=== PATIENT | male | born 1950 | race Caucasian/White ===

== ENCOUNTER 2020-04-14 08:31 | Outpatient (CLI) | payer MEDICARE, SELFPAY ==
[2020-04-14 08:50] LABS: Basophils Absolute Auto 0.03 K/mm3 (0.00-0.10); Basophils Percent Auto 0.5 % (0.0-1.0); Eosinophils Absolute Auto 0.07 K/mm3 (0.02-0.50); Eosinophils Percent Auto 1.2 % (1.0-6.0); Hematocrit 48.3 % (37.0-46.0); Hemoglobin 15.9 g/dL (12.4-15.3); Immature Granulocyte Absolute 0.02 K/mm3 (0.00-0.00); Immature Granulocyte Percent A 0.3 % (0.0-0.0); Lymphocytes Absolute Auto 1.25 K/mm3 (1.10-4.50); Lymphocytes Percent Auto 21.3 % (18.0-42.0); Mean Corpuscular HGB Conc 32.9 g/dL (32.0-36.0); Mean Corpuscular Hemoglobin 30.8 pg (27.0-31.0); Mean Corpuscular Volume 93.6 fL (78.0-102.0); Mean Platelet Volume 11.7 fl (8.7-11.0); Monocytes Absolute Auto 0.45 K/mm3 (0.10-0.90); Monocytes Percent Auto 7.7 % (2.0-11.0); Neutrophils Absolute Auto 4.1 K/mm3 (1.7-7.2); Platelet Count Result 152 K/mm3 (150-420); Red Blood Count 5.16 M/mm3 (4.70-6.10); Red Cell Distribution Width 12.8 % (11.6-14.4); White Blood Count 5.9 K/mm3 (4.8-10.8)
[2020-04-14 08:52] LABS: Add Urine Microscopic? NO; Appearance Urine Clear (Clear); Bilirubin Urine Negative (Negative); Blood Urine Negative (Negative); Color Urine Yellow (Yellow); Glucose Urine UA Negative (Negative); Ketones Urine Negative (Negative); Leukocyte Esterase Ur Negative (Negative); Nitrate Urine Negative (Negative); Protein Urine Negative (Negative); Specific Grav Ur 1.015 (1.010-1.020); Urobilinogen Urine 0.2 mg/dL (0.2-1.0)
[2020-04-14 09:39] LABS: Alanine Aminotransferase 29 U/L (16-63); Albumin Level 3.9 g/dL (3.4-5.0); Alkaline Phosphatase 63 U/L (46-116); Aspartate Amino Transferase 23 U/L (15-37); Bilirubin,Total 0.6 mg/dL (0.00-1.00); Blood Urea Nitrogen 16 mg/dL (7-18); Calcium 9.5 mg/dL (8.5-10.1); Carbon Dioxide 31 mmol/L (21-32); Chloride 108 mmol/L (98-108); Cholesterol 131 mg/dL (0-200); Estimated Glomerular Filt Rate > 60; Glucose 92 mg/dL (70-99); HDL Direct 38 mg/dL (40-60); LDL Cholesterol Calculated 75 mg/dL (<130); Osmolality Calculated 301 mOsm/kg (285-295); Prostate Specific Antigen 0.5 ng/mL (< OR = 4.0); Sodium 145 mmol/L (136-145); Total Protein 6.6 g/dL (6.4-8.2); Triglycerides 90 mg/dL (0-150)
== END 2020-04-14 08:32 | disposition home or self-care (01) ==
PROVIDERS: PCP Internal Medicine; Visit Provider Internal Medicine Cardiovascular Disease
DX: E78.5 Hyperlipidemia, unspecified (principal); Z79.899 Other long term (current) drug therapy; Z13.220 Encounter for screening for lipoid disorders; I10 Essential (primary) hypertension; Z12.5 Encounter for screening for malignant neoplasm of prostate
CPT/HCPCS: 36415; 80053; 80061; 81003; 84153; 85025; G0103

== ENCOUNTER 2021-06-10 08:30 | Outpatient (CLI) | payer MEDICARE, SELFPAY ==
[2021-06-10 09:33] LABS: Basophils Absolute Auto 0.03 K/mm3 (0.00-0.10); Basophils Percent Auto 0.4 % (0.0-1.0); Eosinophils Percent Auto 1.5 % (1.0-6.0); Hematocrit 48.9 % (37.0-46.0); Hemoglobin 16.1 g/dL (12.4-15.3); Immature Granulocyte Absolute 0.02 K/mm3 (0.00-0.00); Immature Granulocyte Percent A 0.3 % (0.0-0.0); Lymphocytes Absolute Auto 1.51 K/mm3 (1.10-4.50); Lymphocytes Percent Auto 22.4 % (18.0-42.0); Mean Corpuscular HGB Conc 32.9 g/dL (32.0-36.0); Mean Corpuscular Hemoglobin 30.8 pg (27.0-31.0); Mean Corpuscular Volume 93.5 fL (78.0-102.0); Mean Platelet Volume 11.5 fl (8.7-11.0); Monocytes Absolute Auto 0.54 K/mm3 (0.10-0.90); Neutrophils Absolute Auto 4.6 K/mm3 (1.7-7.2); Neutrophils Percent Auto 67.4 % (50.0-70.0); Platelet Count Result 193 K/mm3 (150-420); Red Blood Count 5.23 M/mm3 (4.70-6.10); Red Cell Distribution Width 13.1 % (11.6-14.4); White Blood Count 6.8 K/mm3 (4.8-10.8)
[2021-06-10 10:15] LABS: Alanine Aminotransferase 44 U/L (16-63); Albumin Level 3.9 g/dL (3.4-5.0); Alkaline Phosphatase 70 U/L (46-116); Anion Gap 10 mmol/L (8-16); Aspartate Amino Transferase 27 U/L (15-37); Bilirubin,Total 0.7 mg/dL (0.00-1.00); Blood Urea Nitrogen 17 mg/dL (7-18); Calcium 9.5 mg/dL (8.5-10.1); Carbon Dioxide 30 mmol/L (21-32); Chloride 107 mmol/L (98-108); Cholesterol 148 mg/dL (0-200); Estimated Glomerular Filt Rate > 60; Ferritin 211 ng/mL (26-388); Glucose 88 mg/dL (70-99); HDL Direct 39 mg/dL (40-60); Iron 84 ug/dL (65-175); LDL Cholesterol Calculated 83 mg/dL (<130); Osmolality Calculated 304 mOsm/kg (285-295); Percent Iron Saturation 28 % (12-57); Potassium 5.1 mmol/L (3.5-5.1); Prostate Specific Antigen 0.7 ng/mL (< OR = 4.0); Sodium 147 mmol/L (136-145); Total Protein 6.8 g/dL (6.4-8.2); Triglycerides 132 mg/dL (0-150)
== END 2021-06-10 08:31 | disposition home or self-care (01) ==
PROVIDERS: PCP Internal Medicine; Visit Provider Internal Medicine Cardiovascular Disease
DX: I49.5 Sick sinus syndrome (principal); E78.5 Hyperlipidemia, unspecified; D50.9 Iron deficiency anemia, unspecified; I10 Essential (primary) hypertension; Z95.1 Presence of aortocoronary bypass graft; Z12.5 Encounter for screening for malignant neoplasm of prostate
CPT/HCPCS: 36415; 80053; 80061; 82728; 83540; 83550; 84153; 85025; G0103

== ENCOUNTER 2021-08-20 09:24 | Outpatient (CLI) | payer MEDICARE, SELFPAY ==
[2021-08-20 10:25] LABS: Cholesterol 138 mg/dL (0-200); Free T3 2.28 pg/mL (2.18-3.98); Free T4 Free Thyroxine 0.69 ng/dL (0.76-1.46); HDL Direct 36 mg/dL (40-60); LDL Cholesterol Calculated 81 mg/dL (<130); Thyroid Stimulating Hormone 4.78 uIU/mL (0.36-3.74); Triglycerides 106 mg/dL (0-150)
== END 2021-08-20 09:25 | disposition home or self-care (01) ==
LOC: CHSLAB 09:26
PROVIDERS: PCP Internal Medicine; Visit Provider Internal Medicine
DX: R53.83 Other fatigue (principal); E11.69 Type 2 diabetes mellitus with other specified complication; E78.5 Hyperlipidemia, unspecified
CPT/HCPCS: 36415; 80061; 84439; 84443; 84481

== ENCOUNTER 2021-08-25 14:52 | Outpatient (CLI) | payer MEDICARE, SELFPAY ==
--- NOTE | ~2021-08-25 | US_ITS ---
EXAMINATION: US thyroid DATE: 08/25/2021 15:24 INDICATION: Hyperthyroidism. TECHNIQUE: Multiple ultrasound images of the thyroid were obtained. COMPARISON: None. FINDINGS: The right thyroid lobe measures 3.7 x 1.6 x 1.3 cm. The left thyroid lobe measures 3.1 x 1.5 x 1.3 c m. In the left thyroid lobe, there is an 8 mm solid, hypoechoic, jotnq-tsph-mcbt nodule with smooth margin without echogenic foci (TI-RADS TR4). IMPRESSION: 1. Small thyroid nodule, likely not clinically significant. No follow-up is needed. Reviewed, dictated and finalized at location A. IMPRESSION: 1. Small thyroid nodule, likely not clinically significant. No follow-up is nee ded.
[2021-08-28 05:46] LABS: Thyroglobulin 14.9 ng/mL (2.8-40.9); Thyroglobulin Antibodies <1 IU/mL (<=1); Thyroid Peroxidase Antibodies <1 IU/mL (<9)
== END 2021-08-25 14:53 | disposition home or self-care (01) ==
PROVIDERS: PCP Internal Medicine; Visit Provider Internal Medicine
DX: E03.9 Hypothyroidism, unspecified (principal)
CPT/HCPCS: 36415; 76536; 84432; 86376; 86800

== ENCOUNTER 2022-03-04 13:40 | Outpatient (CLI) | payer MEDICARE, SELFPAY ==
[2022-03-04 14:17] LABS: Basophils Absolute Auto 0.03 K/mm3 (0.00-0.10); Basophils Percent Auto 0.3 % (0.0-1.0); Eosinophils Absolute Auto 0.06 K/mm3 (0.02-0.50); Eosinophils Percent Auto 0.7 % (1.0-6.0); Hematocrit 47.4 % (37.0-46.0); Hemoglobin 15.7 g/dL (12.4-15.3); Immature Granulocyte Absolute 0.02 K/mm3 (0.00-0.00); Immature Granulocyte Percent A 0.2 % (0.0-0.0); Lymphocytes Absolute Auto 1.13 K/mm3 (1.10-4.50); Lymphocytes Percent Auto 12.4 % (18.0-42.0); Mean Corpuscular HGB Conc 33.1 g/dL (32.0-36.0); Mean Corpuscular Hemoglobin 31.1 pg (27.0-31.0); Mean Corpuscular Volume 93.9 fL (78.0-102.0); Mean Platelet Volume 11.5 fl (8.7-11.0); Monocytes Absolute Auto 0.63 K/mm3 (0.10-0.90); Monocytes Percent Auto 6.9 % (2.0-11.0); Neutrophils Absolute Auto 7.3 K/mm3 (1.7-7.2); Neutrophils Percent Auto 79.5 % (50.0-70.0); Platelet Count Result 197 K/mm3 (150-420); Red Blood Count 5.05 M/mm3 (4.70-6.10); Red Cell Distribution Width 13.1 % (11.6-14.4); White Blood Count 9.1 K/mm3 (4.8-10.8)
[2022-03-04 14:18] LABS: Add Urine Microscopic? YES; Appearance Urine Clear (Clear); Bilirubin Urine Negative (Negative); Blood Urine Negative (Negative); Color Urine Yellow (Yellow); Glucose Urine UA Negative (Negative); Ketones Urine Negative (Negative); Leukocyte Esterase Ur Negative (Negative); Nitrate Urine Negative (Negative); Protein Urine 2+ (Negative); Specific Grav Ur 1.025 (1.010-1.020); Urobilinogen Urine 0.2 mg/dL (0.2-1.0)
[2022-03-04 14:22] LABS: Bacteria Urine Trace /hpf; Mucus Urine Few /lpf; RBC Urine None seen /hpf (0-2); Squamous Epithelial Cell Urine Rare /hpf (Few); WBC Urine None seen /hpf (0-3)
[2022-03-04 14:47] LABS: Alanine Aminotransferase 32 U/L (16-63); Albumin Level 3.9 g/dL (3.4-5.0); Alkaline Phosphatase 73 U/L (46-116); Anion Gap 12 mmol/L (8-16); Aspartate Amino Transferase 20 U/L (15-37); Bilirubin,Total 0.4 mg/dL (0.00-1.00); Blood Urea Nitrogen 20 mg/dL (7-18); Calcium 9.3 mg/dL (8.5-10.1); Carbon Dioxide 25 mmol/L (21-32); Chloride 106 mmol/L (98-108); Cholesterol 128 mg/dL (0-200); Estimated Glomerular Filt Rate > 60; Free T3 2.44 pg/mL (2.18-3.98); Free T4 Free Thyroxine 0.75 ng/dL (0.76-1.46); Glucose 93 mg/dL (70-99); HDL Direct 41 mg/dL (40-60); LDL Cholesterol Calculated 67 mg/dL (<130); Osmolality Calculated 298 mOsm/kg (285-295); Potassium 4.2 mmol/L (3.5-5.1); Sodium 143 mmol/L (136-145); Thyroid Stimulating Hormone 3.51 uIU/mL (0.36-3.74); Total Protein 6.9 g/dL (6.4-8.2); Triglycerides 100 mg/dL (0-150)
== END 2022-03-04 13:41 | disposition home or self-care (01) ==
LOC: CHSLAB 13:42
PROVIDERS: PCP Internal Medicine; Visit Provider Internal Medicine
DX: E78.5 Hyperlipidemia, unspecified (principal); I10 Essential (primary) hypertension; E03.9 Hypothyroidism, unspecified
CPT/HCPCS: 36415; 80053; 80061; 81001; 84439; 84443; 84481; 85025

== ENCOUNTER 2022-06-17 08:33 | Outpatient (CLI) | payer MEDICARE, SELFPAY ==
[2022-06-17 09:02] LABS: Cholesterol 115 mg/dL (0-200); HDL Direct 37 mg/dL (40-60); LDL Cholesterol Calculated 58 mg/dL (<130); Triglycerides 101 mg/dL (0-150)
== END 2022-06-17 08:34 | disposition home or self-care (01) ==
LOC: CHSLAB 08:37
PROVIDERS: PCP Internal Medicine; Visit Provider Internal Medicine Cardiovascular Disease
DX: E78.5 Hyperlipidemia, unspecified (principal); E11.69 Type 2 diabetes mellitus with other specified complication
CPT/HCPCS: 36415; 80061

== ENCOUNTER 2022-06-21 00:06 | Day surgery (SDC) | payer MEDICARE, OTHER, SELFPAY ==
[2022-06-02 14:08] VITALS: BMI 35.8
[2022-06-21 06:42] VITALS: BP 135/67; PULSE 51; RESP 18; TEMP 36; O2SAT 96; BMI 36.5
[2022-06-21] MEDS: LACTATED RINGERS 1,000 ML 150 ML IV CONT (07:02)
--- NOTE | 2022-06-21 07:44 | P.PNAN_ITS ---
Anes - Initial Pre Proc Eval Procedure: Operation Date: 06/21/22 08:00 Proposed Procedures p Screening Colonoscopy - Vicente Dubon MD Date/Time: 06/21/22 07:44 Surgeon: Vicente Dubon MD Pre Op Diagnosis: neoplasm screening Patient Data Age: 71 Gender: M Height: 1.73 m Weight: 109 kg Last Vital Signs Temp 96.8 F L 06/21/22 06:42 Pulse 51 L 06/21/22 06:42 Resp 18 06/21/22 06:42 BP 135/67 06/21/22 06:42 Pulse Ox 96 06/21/22 06:42 O2 Del Method Room Air 06/21/22 06:42 Allergies Allergy/AdvReac Type Severity Reaction Status Date / Time No Known Allergies Allergy Verified 06/21/22 06:51 Home Medications Medication Instructions Recorded Confirmed Type amlodipine 5 mg tablet 1 tablet PO DAILY 06/02/22 06/21/22 History aspirin 81 mg tablet 81 mg PO DAILY 06/02/22 06/21/22 History atorvastatin 80 mg tablet 1 tablet PO DAILY 06/02/22 06/21/22 History fexofenadine 180 mg tablet 180 mg PO DAILY 06/02/22 06/21/22 History losartan 100 mg tablet 1 tablet PO DAILY 06/02/22 06/21/22 History omega-3 fatty acids 1,000 mg 2,000 mg PO DAILY 06/02/22 06/21/22 History capsule spironolactone 25 mg tablet 1 tablet PO EVERY OTHER DAY 06/02/22 06/21/22 Histo ry Patient hx anesthesia problems: none Family hx anesthesia problems: none Results Review: All pre-operative results and documents have been reviewed as part of the pre- operative evaluation. [facility] Family History Family History (Updated 11/16/17 @ 00:00 by CONVUSER A) Father Family history of coronary artery disease Other Cerebrovascular accident Social History Social History Smoking packs per day: 2 Smoking cigarettes per day: 40.0 Smoking status: Current every day smoker Tobacco type: cigarettes Alcohol intake: current Alcohol use details: 1 PER MONTH Substance use: never Substance use type: does not use Living arrangements: with family Spiritual care concerns: No Anes - Eval Final PreProcedure Day of Procedure 06/21/22 07:44 Patient weight: obese Heart: regular rate and rhythm Lungs: clear to auscultation Airway: Mallampati scale class II Neurological: alert and oriented Last oral intake: >/= 8 hours ASA classification: III Emergent: no Anesthetic plan: proceed Anesthesia type and monitoring: general GIVS and standard monitoring Results Review: All pre-operative results and documents have been reviewed as part of the pre- operative evaluation. Informed Consent: The patient's anesthetic plan and its attendant risks and benefits were discussed with the patient/family/POA. Questions were solicited and answers provided to the satisfaction of the patient/family/POA.
--- NOTE | 2022-06-21 07:53 | PM.HPGS ---
History of Present Illness History of Present Illness Consent: Risks, benefits, and alternatives have been discussed and questions answered. Patient agrees to proceed with procedure. Chief complaint: neoplasm screening Narrative: Kenny Valdivia is a 71 year old male here for screening colonoscopy, last one in 2010 Review of Systems Constitutional: Constitutional: Denies headache(s) and Denies weakness Eyes: Eyes: Denies blurry vision ENT: Reports Normal hearing present, Denies headache(s) and Denies neck pain Cardiovascular: Cardiovascular: Denies chest pain and Denies dyspnea Respiratory: Respiratory: Denies dyspnea Gastrointestinal: Gastrointestinal: Reports no additional gastrointestinal complaints Genitourinary: Genitourinary: Denies dysuria Musculoskeletal: Musculoskeletal: Denies neck pain Integumentary/Breasts: Skin/Breast: Denies dry skin Neurologic: Reports Normal hearing present, Denies headache(s) and Denies weakness Psychiatric: Psychiatric: Denies anxiety Endocrine: Endocrine: Denies change in body appearance Hematologic/Lymphatic: Hematologic/Lymphatic: Denies easy bleeding Allergic/Immunologic: Allergic/Immunologic: Denies urticaria PMF Past Medical History Medical History (Updated 06/21/22 @ 07:53 by Vicente Dubon MD) Colon cancer screening Family History Family History (Updated 11/16/17 @ 00:00 by CONVUSER A) Father Family history of coronary artery disease Other Cerebrovascular accident Social History Social History Smoking packs per day: 2 Smoking cigarettes per day: 40.0 Smoking status: Current every day smoker Tobacco type: cigarettes Alcohol intake: current Alcohol use details: 1 PER MONTH Substance use: never Substance use type: does not use Living arrangements: with family Spiritual care concerns: No Meds Home Medications and Allergies Home Medications Medication Instructions Recorded Confirmed Type amlodipine 5 mg tablet 1 tablet PO DAILY 06/02/22 06/21/22 History aspirin 81 mg tablet 81 mg PO DAILY 06/02/22 06/21/22 History atorvastatin 80 mg tablet 1 tablet PO DAILY 06/02/22 06/21/22 History fexofenadine 180 mg tablet 180 mg PO DAILY 06/02/22 06/21/22 History losartan 100 mg tablet 1 tablet PO DAILY 06/02/22 06/21/22 History omega-3 fatty acids 1,000 mg 2,000 mg PO DAILY 06/02/22 06/21/22 History capsule spironolactone 25 mg tablet 1 tablet PO EVERY OTHER DAY 06/02/22 06/21/22 History Allergies Allergy/AdvReac Type Severity Reaction Status Date / Time No Known Allergies Allergy Verified 06/21/22 06:51 Vital Signs Vital Signs - 24 hr 06/21/22 06:42 Temperature 96.8 F L Pulse Rate 51 L Respiratory Rate 18 Blood Pressure 135/67 Pulse Oximetry 96 Oxygen Delivery Room Air Exam Const: General: comfortable and no acute distress HENMT: General nose exam: Normal nares present Eyes: General: appearance normal, both eyes and all related structures Neck: Neck: no JVD Resp: Auscultation: clear to auscultation bilaterally Cardio: Rate: regular rate Rhythm: regular rhythm GI: Inspection: non-distended GI Palp: Yes Soft to palpation Skin: General skin exam: normal color Neuro: General: gait normal Speech: normal speech Extrem: General: normal to inspection Psych: Mental Status: mental status grossly normal Assessment and Plan Assessment and plan (1) Colon cancer screening: Code(s): Z12.11 - Encounter for screening for malignant neoplasm of colon Status: Acute Assessment and Plan: colonoscopy
[2022-06-21 08:09] VITALS: BP 108/67; PULSE 53; RESP 20; O2SAT 98
[2022-06-21 08:19] VITALS: BP 102/59; PULSE 48; RESP 23; O2SAT 99
[2022-06-21 08:29] VITALS: BP 166/60; PULSE 52; RESP 18; O2SAT 99
== END 2022-06-21 08:37 | disposition home or self-care (01) ==
PROVIDERS: PCP Internal Medicine; Visit Provider Internal Medicine Gastroenterology
PROC: 0DJD8ZZ Inspection of Lower Intestinal Tract, Via Natural or Artificial Opening Endoscopic (ICD-10-PCS; CPT 45378; principal; 2022-06-21 08:00)
DX: Z12.11 Encounter for screening for malignant neoplasm of colon (principal); D12.0 Benign neoplasm of cecum; K57.30 Diverticulosis of large intestine without perforation or abscess without bleeding; F17.210 Nicotine dependence, cigarettes, uncomplicated; Z79.82 Long term (current) use of aspirin; E66.9 Obesity, unspecified; Z68.36 Body mass index [BMI] 36.0-36.9, adult
CPT/HCPCS: 45385; 88305; J2704; J7120

== ENCOUNTER 2023-03-07 21:06 | Emergency (ER) | payer MEDICARE, OTHER, SELFPAY ==
[2023-03-07 21:07] VITALS: BP 175/88; PULSE 88; RESP 20; TEMP 36.7; O2SAT 99
--- NOTE | 2023-03-07 21:13 | ED.GENADULT ---
HPI - General Adult General Chief complaint: Eye Problems Stated complaint: L Eye issue History of Present Illness HPI narrative: This is a 72-year-old male presenting ED with chief complaint of left eye pain. Patient was working outside yesterday to his significant amount of yd work. During that time the grass cuttings were blowing up he had some eye irritation. When he awoke his eye was irritated red with some minor swelling. Patient denies visual changes. He denies foreign body sensation. He has history of seasonal allergies which he takes Mary Ellen and Flonase. Related Data Home Medications Medication Instructions Recorded Confirmed amlodipine 5 mg tablet 1 tablet PO DAILY 06/02/22 06/21/22 aspirin 81 mg tablet 81 mg PO DAILY 06/02/22 06/21/22 atorvastatin 80 mg tablet 1 tablet PO DAILY 06/02/22 06/21/22 fexofenadine 180 mg tablet 180 mg PO DAILY 06/02/22 06/21/22 losartan 100 mg tablet 1 tablet PO DAILY 06/02/22 06/21/22 omega-3 fatty acids 1,000 mg 2,000 mg PO DAILY 06/02/22 06/21/22 capsule spironolactone 25 mg tablet 1 tablet PO EVERY OTHER DAY 06/02/22 06/21/22 Allergies Allergy/AdvReac Type Severity Reaction Status Date / Time No Known Allergies Allergy Verified 06/21/22 06:51 [facility] Past Medical History Medical History CAD (coronary artery disease) Colon cancer screening Hypertension Family History Family History Father Family history of coronary artery disease Other Cerebrovascular accident Social History Social History Smoking packs per day: 2 Smoking cigarettes per day: 40.0 Smoking status: Current every day smoker Tobacco type: cigarettes Alcohol intake: current Alcohol use details: 1 PER MONTH Substance use: never Substance use type: does not use Living arrangements: with family Spiritual care concerns: No Exam Narrative: APPEARANCE: No apparent distress. Head: atraumatic. EYES: EOMI, scleral injection of the left eye. No foreign bodies noted. Visual acuity is Normal. intra-ocular pressures were 16 bilaterally. no fluorescein uptake on exam. No Mary Ann sign. Minor swelling around the outside of the left eye with no erythema or evidence of cellulitis. NOSE: Atraumatic NECK: Trachea midline RESPIRATORY: No increased rate of breathing CARDIOVASCULAR: RRR, ABDOMINAL: Non-distended MUSCULOSKELETAl: No obvious deformities NEURO: Alert. Moving 4/4 extremities SKIN:: Warm, dry. Normal color PSYCHIATRIC: Normal affect Course Vital Signs Vital signs: Vital Signs Temperature 98.1 F 03/07/23 21:07 Pulse Rate 88 03/07/23 21:07 Respiratory Rate 20 03/07/23 21:07 Blood Pressure 175/88 H 03/07/23 21:07 Pulse Oximetry 99 03/07/23 21:07 Oxygen Delivery Room Air 03/07/23 21:07 Temperature 98.1 F 03/07/23 21:07 Pulse Rate 88 03/07/23 21:07 Respiratory Rate 20 03/07/23 21:07 Blood Pressure 175/88 H 03/07/23 21:07 Pulse Oximetry 99 03/07/23 21:07 Oxygen Delivery Room Air 03/07/23 21:07 Medical Decision Making [facility] Narrative Medical decision making narrative: -Presentation: 72-year-old male presenting with left eye pain and irritation. 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 lives with his . -External Chart Review: None -Hx from independent Sources: none -Discussion of Management/Consultants: none -Independent interpretation of studies: Visual acuity is normal. Pressures are normal. No foreign bodies or corneal abrasions noted on exam. Dx tests considered but not ordered: -Procedures: none -Interventions: none -Sh
[2023-03-07] MEDS: FLUORESCEIN SOD 1 MG/STRIP EACH EYE (21:43)
[2023-03-07] MEDS: TETRACAINE HCL 0.5% OPHTH SOLN 4 ML BTL 1 DROP EACH EYE (21:44)
[2023-03-07 21:57] VITALS: BP 141/84; PULSE 88; RESP 20; TEMP 36.7; O2SAT 99
== END 2023-03-07 21:59 | disposition home or self-care (01) ==
PROVIDERS: Emergency Provider Emergency Medicine; PCP Internal Medicine
DX: H10.9 Unspecified conjunctivitis (principal); I25.10 Atherosclerotic heart disease of native coronary artery without angina pectoris; I10 Essential (primary) hypertension; F17.210 Nicotine dependence, cigarettes, uncomplicated; Z79.82 Long term (current) use of aspirin
CPT/HCPCS: 99283

== ENCOUNTER 2023-04-26 18:09 | Outpatient (CLI) | payer MEDICARE, OTHER, SELFPAY ==
--- NOTE | ~2023-04-26 | XR_ITS ---
EXAMINATION: XR chest 2V DATE: 04/26/2023 18:31 INDICATION: Cough TECHNIQUE: Frontal and lateral views of the chest are obtained COMPARISON: 06/12/2017 FINDINGS: There are minimal left basilar airspace opacities. No pleural effusion or pneumothorax. The heart size is normal. There is mild thoracic spondylosis. Median sternotomy wires and mediastinal sargent rgical clips are seen, likely from prior coronary artery bypass grafting. IMPRESSION: 1. Minimal left basilar airspace opacity, consistent with atelectasis versus pneumonia. Reviewed, dictated and finalized at location F. IMPRESSION: 1. Minimal left basilar airspace opacity, consistent with atelectasis versus pn eumonia.
[2023-04-26 18:26] LABS: Basophils Absolute Auto 0.04 K/mm3 (0.00-0.10); Basophils Percent Auto 0.5 % (0.0-1.0); Eosinophils Percent Auto 1.2 % (1.0-6.0); Hematocrit 48.2 % (37.0-46.0); Hemoglobin 15.7 g/dL (12.4-15.3); Immature Granulocyte Absolute 0.06 K/mm3 (0.00-0.00); Immature Granulocyte Percent A 0.7 % (0.0-0.0); Lymphocytes Absolute Auto 1.24 K/mm3 (1.10-4.50); Lymphocytes Percent Auto 14.5 % (18.0-42.0); Mean Corpuscular HGB Conc 32.6 g/dL (32.0-36.0); Mean Corpuscular Hemoglobin 30.9 pg (27.0-31.0); Mean Corpuscular Volume 94.9 fL (78.0-102.0); Mean Platelet Volume 10.2 fl (8.7-11.0); Monocytes Absolute Auto 0.65 K/mm3 (0.10-0.90); Monocytes Percent Auto 7.6 % (2.0-11.0); Neutrophils Absolute Auto 6.5 K/mm3 (1.7-7.2); Neutrophils Percent Auto 75.5 % (50.0-70.0); Platelet Count Result 196 K/mm3 (150-420); Red Blood Count 5.08 M/mm3 (4.70-6.10); Red Cell Distribution Width 13.2 % (11.6-14.4); White Blood Count 8.6 K/mm3 (4.8-10.8)
== END 2023-04-26 18:10 | disposition home or self-care (01) ==
LOC: CHSLAB 18:12
PROVIDERS: PCP Internal Medicine; Visit Provider Internal Medicine
DX: R05.9 Cough, unspecified (principal); R91.8 Other nonspecific abnormal finding of lung field
CPT/HCPCS: 36415; 71046; 85025

== ENCOUNTER 2023-05-05 08:48 | Outpatient (CLI) | payer MEDICARE, OTHER, SELFPAY ==
--- NOTE | ~2023-05-05 | XR_ITS ---
EXAMINATION: XR chest 2V 05/05/2023 09:08 INDICATION: Pneumonia. Cough. PROCEDURE: 2 view chest COMPARISON: 04/26/2023 FINDINGS: The lungs are clear. The cardiomediastinal silhouette is within normal limits. There are no pleural effusions. There is no pneumothorax suspected. Status post median sternotomy for CABG. C alcified granuloma left lower lobe. IMPRESSION: 1: NO ACUTE CARDIOPULMONARY DISEASE. Reviewed, dictated and finalized at location []
== END 2023-05-05 08:49 | disposition home or self-care (01) ==
LOC: CHSIMG 08:52
PROVIDERS: PCP Internal Medicine; Visit Provider Internal Medicine
DX: J18.9 Pneumonia, unspecified organism (principal)
CPT/HCPCS: 71046

== ENCOUNTER 2023-05-11 15:42 | Outpatient (CLI) | payer MEDICARE, SELFPAY ==
[2023-05-11 16:44] LABS: SARS-CoV-2 RNA PCR Negative (Negative)
== END 2023-05-11 15:43 | disposition home or self-care (01) ==
LOC: CHSLAB 15:45
PROVIDERS: PCP Internal Medicine; Visit Provider Nurse Practitioner Family
DX: Z20.822 Contact with and (suspected) exposure to COVID-19 (principal)
CPT/HCPCS: 87635

== ENCOUNTER 2023-06-20 08:30 | Outpatient (CLI) | payer MEDICARE, SELFPAY ==
[2023-06-20 09:02] LABS: Appearance Urine Clear (Clear); Basophils Absolute Auto 0.02 K/mm3 (0.00-0.10); Basophils Percent Auto 0.4 % (0.0-1.0); Bilirubin Urine Negative (Negative); Blood Urine Negative (Negative); Color Urine Light Yellow (Yellow); Eosinophils Absolute Auto 0.06 K/mm3 (0.02-0.50); Eosinophils Percent Auto 1.1 % (1.0-6.0); Glucose Urine UA Negative (Negative); Hematocrit 46.4 % (37.0-46.0); Hemoglobin 15.1 g/dL (12.4-15.3); Immature Granulocyte Absolute 0.02 K/mm3 (0.00-0.00); Immature Granulocyte Percent A 0.4 % (0.0-0.0); Ketones Urine Negative (Negative); Leukocyte Esterase Ur Negative LEU/UL (Negative); Lymphocytes Absolute Auto 1.37 K/mm3 (1.10-4.50); Lymphocytes Percent Auto 24.7 % (18.0-42.0); Mean Corpuscular HGB Conc 32.5 g/dL (32.0-36.0); Mean Corpuscular Hemoglobin 31.1 pg (27.0-31.0); Mean Corpuscular Volume 95.5 fL (78.0-102.0); Mean Platelet Volume 10.4 fl (8.7-11.0); Monocytes Absolute Auto 0.48 K/mm3 (0.10-0.90); Monocytes Percent Auto 8.7 % (2.0-11.0); Neutrophils Absolute Auto 3.6 K/mm3 (1.7-7.2); Neutrophils Percent Auto 64.7 % (50.0-70.0); Nitrate Urine Negative (Negative); Platelet Count Result 177 K/mm3 (150-420); Protein Urine Negative (Negative); Red Blood Count 4.86 M/mm3 (4.70-6.10); Red Cell Distribution Width 13.4 % (11.6-14.4); Specific Grav Ur 1.015 (1.010-1.020); Urobilinogen Urine 0.2 mg/dL (0.2-1.0); White Blood Count 5.5 K/mm3 (4.8-10.8)
[2023-06-20 09:03] LABS: Add Urine Microscopic? NO
[2023-06-20 09:40] LABS: Alanine Aminotransferase 30 U/L (16-63); Albumin Level 3.8 g/dL (3.4-5.0); Alkaline Phosphatase 70 U/L (46-116); Anion Gap 9 mmol/L (8-16); Aspartate Amino Transferase 15 U/L (15-37); Bilirubin Direct 0.2 mg/dL (0-0.2); Bilirubin,Total 0.8 mg/dL (0.00-1.00); Blood Urea Nitrogen 24 mg/dL (7-18); Calcium 9.7 mg/dL (8.5-10.1); Carbon Dioxide 28 mmol/L (21-32); Chloride 107 mmol/L (98-108); Cholesterol 123 mg/dL (0-200); Creatine Kinase 77 U/L (39-308); Estimated Glomerular Filt Rate 58; Glucose 99 mg/dL (70-99); HDL Direct 36 mg/dL (40-60); LDL Cholesterol Calculated 67 mg/dL (<130); Osmolality Calculated 302 mOsm/kg (285-295); Prostate Specific Antigen 0.6 ng/mL (< OR = 4.0); Sodium 144 mmol/L (136-145); Total Protein 6.7 g/dL (6.4-8.2); Triglycerides 102 mg/dL (0-150)
== END 2023-06-20 08:31 | disposition home or self-care (01) ==
PROVIDERS: PCP Internal Medicine; Visit Provider Internal Medicine Cardiovascular Disease
DX: E78.2 Mixed hyperlipidemia (principal); I10 Essential (primary) hypertension; Z12.5 Encounter for screening for malignant neoplasm of prostate; E11.69 Type 2 diabetes mellitus with other specified complication
CPT/HCPCS: 36415; 80053; 80061; 81003; 82248; 82550; 84153; 85025; G0103

== ENCOUNTER 2024-07-11 07:21 | Outpatient (CLI) | payer MEDICARE, SELFPAY ==
[2024-07-11 07:36] LABS: Hematocrit 47.2 % (37.0-46.0); Hemoglobin 15.6 g/dL (12.4-15.3); Mean Corpuscular HGB Conc 33.1 g/dL (32-36); Mean Corpuscular Hemoglobin 31.5 pg (27.0-31.0); Mean Corpuscular Volume 95.2 fL (78.0-102.0); Mean Platelet Volume 11.1 fl (8.7-11.0); Platelet Count Result 163 K/mm3 (150-420); Red Blood Count 4.96 M/mm3 (4.70-6.10); Red Cell Distribution Width 13.2 % (11.6-14.4); White Blood Count 6.5 K/mm3 (4.8-10.8)
[2024-07-11 07:37] LABS: Add Urine Microscopic? NO; Appearance Urine Clear (Clear); Bilirubin Urine Negative (Negative); Blood Urine Negative (Negative); Color Urine Light Yellow (Yellow); Glucose Urine UA Negative (Negative); Ketones Urine Negative (Negative); Leukocyte Esterase Ur Negative LEU/UL (Negative); Nitrate Urine Negative (Negative); Protein Urine Negative (Negative); Urobilinogen Urine 0.2 mg/dL (0.2-1.0)
[2024-07-11 08:25] LABS: Alanine Aminotransferase 38 U/L (16-63); Albumin Level 3.9 g/dL (3.4-5.0); Alkaline Phosphatase 66 U/L (46-116); Anion Gap 7 mmol/L (4-12); Aspartate Amino Transferase 24 U/L (15-37); Bilirubin,Total 0.5 mg/dL (0.00-1.00); Blood Urea Nitrogen 19 mg/dL (7-18); Calcium 9.3 mg/dL (8.5-10.1); Carbon Dioxide 31 mmol/L (21-32); Chloride 106 mmol/L (98-108); Cholesterol 112 mg/dL (0-200); Creatine Kinase 90 U/L (39-308); Estimated Glomerular Filt Rate > 60; Glucose 93 mg/dL (70-99); HDL Direct 39 mg/dL (40-60); LDL Cholesterol Calculated 60 mg/dL (<130); Osmolality Calculated 300 mOsm/kg (285-295); Potassium 4.9 mmol/L (3.5-5.1); Prostate Specific Antigen 0.6 ng/mL (< OR = 4.0); Sodium 144 mmol/L (136-145); Total Protein 6.5 g/dL (6.4-8.2); Triglycerides 64 mg/dL (0-150)
== END 2024-07-11 07:22 | disposition home or self-care (01) ==
LOC: CHSLAB 07:24
PROVIDERS: PCP Internal Medicine; Visit Provider Internal Medicine
DX: E78.2 Mixed hyperlipidemia (principal); N39.0 Urinary tract infection, site not specified; Z12.5 Encounter for screening for malignant neoplasm of prostate
CPT/HCPCS: 36415; 80053; 80061; 81003; 82550; 84153; 85027; G0103

== ENCOUNTER 2025-07-11 08:17 | Outpatient (CLI) | payer MEDICARE, SELFPAY ==
--- OUTSIDE RECORDS SUMMARY | 2023-03-22 05:30 | XMS_ITS | Continuity of Care Document ---
Author Organization [facility] Address [address] [place] [address] Phone Care Team Providers Care Wellness Health Coach Name Role Phone Gopi Greenwood MD Unavailable Unavailable Allergies, Adverse Reactions, Alerts Substance Reaction Status Criticality No Known Allergies Active No Inform ation Procedures Procedure Date X-ray exam shoulder complete, minimum 2 views Asp/inject major joint or bursa w/o US g uidance Kenalog 40mg/mL Office[facility]patient [facility], [facility] 20[facility] Advance Directives Directive Yes / No Effective Date File Name No Information Encounters Encounter Description Practice Location Reason(s) For Visit Diagnoses Date Provider Providers Copied on Encounter Office/outpat ient visit,[facility], [facility], [address] [address], [place], [place], [id number], [place] tel:[phone] [facility] Left shoulder (chief complaint) Pain in left shoulderPrimary osteoarthritis, left shoulder 3 Timo Nguyễn. [address] [facility] [address], [place], [address], [place]. tel:[phone] Referring Provider: Gopi Sanford, [address] [facility], [place], [address]. tel:[phone] Family History Family Member Type Diagnosis Age At Onset Mother Problem (finding) Stroke Father Problem (finding) Stroke Mother Problem (finding) Osteoporosis Brother Problem (finding) Depression Father Problem (finding) Hypertension Mother Problem (finding) Depression Father Problem (finding) Heart Disease Mother Problem (finding) Hypertension Payers Payer name Insurance type Covered alliance party ID Ramiro patel(s) Medicare [place] W[place] Part B AYANNA [id number] Group Administrators [facility] [id number] Social History Type Description Quantity Date Captured [...] options, and prognosis at length. He has rlgqhrph-oa-rtxhtl arthritis. He has had no recent treatment. [...]
--- OUTSIDE RECORDS SUMMARY | 2025-07-11 08:22 | XMS_ITS | Clinical Summary ---
Author Organization [facility] Address [address] [place] [address] Care Team Providers Care Contour Path Tape Mill Operator Name Role Phone Unavailable Primary Care Provider Unavailabl e Social History Tobacco Use Types Packs/Day Years Used Date Smoking Tobacco: Never Assessed Sex and Gender Information Value Date Recorded Sex Assigned at Not on file Legal Sex Male 11:40 AM CDT Gender Identity Not on file Sexual Orientation Not on file Plan of Treatment Health Maintenance Due Date Last Done Comments Colorectal Cancer Screening Colonoscopy (10 Years) 1950 Hepatitis C 1968 DTaP, Tdap and Td Vaccines ( 1 - Tdap) 1969 Pneumococcal Vaccine: 50+ Ye ars (1 of 1 - PCV) 2000 Zoster Vaccines (1 of 2) 2000 Annual Medicare Wellness Visit 2015 COVID-19 Vaccine ( - 2023-2 5 season) 2024 RSV Immunization or 60+ Years (1 - 1-dose 75+ series) 2025 Meningococcal B Vaccine Aged Out No l onger eligible based on patient's age to complete this topic Meningococcal Vaccine Aged Out No matt mehul eligible based on patient's age to complete this topic RSV Immunizations Under 20 Months Aged Out No longer eligible based on patient's age to complete this topic Insurance [id number] ADMIN MEDICARE
--- OUTSIDE RECORDS SUMMARY | 2025-07-11 08:22 | XMS_ITS | Clinical Summary ---
Author Organization [facility] [address] Address [address] [place] [address] Care Team Providers Care Farm Equipment Service Technician Name Role Phone Della Jones MD Primary Care Provider Allergies Active Allergy Reactions Criticality Noted Date Comments Levonorgestrel-Ethin yl Estrad Other (See comments) Reaction: OTHER REACTION, Medications omega-3 fatty acids-vitamin E (FISH OIL) 1,000 mg capsule take 1 by Oral route 3 times every day 0 0 05/14/2014 Active fexofenadine (MARK) 180 mg tablet take 1 tablet by oral route every day 0 0 09/29/2015 Active aspirin (Adult Low Dose Aspirin) 81 mg enteric coated tablet Take 1 tablet (81 mg total) by mouth daily 90 tablet 1 07/17/2023 Active amLODIPine (NORVASC) 2.5 mg tablet Take 1 tablet (2.5 mg total) by mouth daily 90 tablet 3 02/28/2025 Active atorvastatin (LIPITOR) 80 mg tablet Take 1 tablet (80 mg total) by mouth daily 90 tablet 3 02/28/2025 Active losartan (COZAAR) 100 mg tablet Take 1 tablet (100 mg total) by mouth daily 90 tablet 3 02/28/2025 Active spironolactone (ALDACTONE) 25 mg tablet Take 0.5 tablets (12.5 mg total) by mouth daily 45 tablet 3 02/28/2025 Active Active Problems Problem Noted Date Diagnosed Date Morbid (severe) obesity due to excess calories 0 07/04/2022 Fluttering sensation of heart 06/15/2017 Paroxysmal supraventricular tachycardia 08/04/20 16 Overview (02/25/2017): PAT (paroxysmal atrial tachycardia) Sick sinus syndrome ([facility]) 08/04/2016 Overview (02/25/2017): Sick sinus syndrome Chronic fatigue 05/31/2016 Overview (02/25/2017): Chronic fatigue Mixed diabetic hyperlipidemi a associated with type 2 diabetes mellitus ([facility]) 05/31/2016 Overview (02/25/2017): DM type 2 with diabetic dyslipidemia Bradycardia 05/31/2016 Overview (02/25/2017): Bradycardia Claudication 09/29/2015 Overview (02/25/2017): Claudication Coronary artery disease invo lving [place] coronary artery of [place] heart without angina pectoris 05/11/2015 Overview (02/25/2017): CAD (coronary artery disease) History of abdominal aortic aneurysm (AAA) repai r 05/14/2014 Overview (02/25/2017): History of AAA (abdominal aortic aneurysm) repair Adiposity 05/14/2014 Overview (02/25/2017): Obesity Hx of CABG 05/14/2014 Overview (02/25/2017): S/P CABG (coronary artery bypass graft) Hypertension associated with diabetes 05/14/2014 Overview (02/25/2017): HTN (hypertension), benign Resolved Problems Problem Noted Date Diagnosed Date Resolved Date Dyslipidemia 05/14/2014 07/04/2022 Overview (02/25/2017): Dyslipidemia Surgical History Surgery Date Site/Laterality Comments CORONARY ARTERY BYPASS GRAFT Medical History Medical History Date Comments Coronary artery disease Hypertension Atrial tachycardia Diabetes mellitus (HCC) Hyperlipidemia Family History Medical History Relation Name Comments Coronary artery disease Father Live nary artery disease; Relation Name Status Comments Father Social History Tobacco Use Types Packs/Day Years Used Date Smoking Tobacco: Former Smokeless Tobacco: Never Alcohol Use Standard Drinks/Week Comments Yes 0 (1 standard drink = 0.6 oz pur e alcohol) Sex and Gender Information Value Date Recorded Sex Assigned at Not on file 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 Gender Identity Not on file Sexual Orientation Not on file Obstetrics History Last Filed Vital Signs Vital Sign Reading Time Taken Comments Blood Pressure 130/65 02/28/2025 2:15 PM CDT Pulse 52 02/28/2025 2:03 PM CDT Temperature - - Respiratory Rate 14 06/15/2017 8:41 AM CDT Oxygen Saturation 97% 02/28/2025 2:03 PM CDT Inhaled Oxygen Concentration - - Weight 98 kg (216 lb) 02/28/2025 2:03 PM CDT Height 172.7 cm (5' 8) 02/28/2025 2:03 PM CDT Body Mass Index 32.84 02/28/2025 2:03 PM CDT Plan of Treatment Health Maintenance Due Date Last Done Comments Albumin Creatinine Ratio, Urine 1950 Colon Cancer Screening-Colonoscopy 1950 Depression Screening 1950 Fall Risk Assessment 1950 Hemoglobin A1C 1950 Hepatitis C Screening 1950 eGFR 1950 Dilated Eye Exam 1950 Foot Exam 1950 DTaP/Tdap/Td Vaccine (1 - Tdap) 1961 Hepatitis B Screening 1968 Pneumococcal vaccine 65+ (1 of 2 - PCV) 1969 Abdominal Aortic Aneurysm (A AA) Screen 2015 Well Visit 65+ 2015 Zoster Vaccine (2 of 2) 06/20/2020 04/25/2020 Influenza Vaccine (#1) 2025 08/26/2019 Lipid Panel 02/28/2026 02/28/2025, 0812/2023, 06/20/2023, Additional history exists Procedures Procedure Name Priority Date/Time Associated Diagnosis Comments POCT LIPID PANEL Routine 02/28/2025 2:00 PM CDT Coronary artery disease involving [place] coronary artery of [place] heart without angina pectoris Mixed diabetic hyperlipidemia associated with type 2 diabetes mellitus (CMS/HCC) (HCC) from Last 3 Months or Most Recently Relevant to Health Maintenance Results * POCT lipid panel (02/28/2025 2:00 PM CDT) Cholesterol, POC 117 mg/dL HDL, POC 33 mg/dL Triglycerides, POC 63 mg/dL LDL Cholesterol POC 71 mg/dL Chol/HDL Ratio, POC 3.6 Non-HDL Cholesterol, POC 84 mg/dL Cholesterol Total, POC 117 mg/dL Capillary blood 02/28/2025 2 :00 PM CDT Jeremiah Campos MD POINT OF CARE TEST ORDERA BLES Final Result from Last 3 Months or Most Recently Relevant to Health Maintenance Insurance COMMERCIAL GENERIC Member Subscriber Plan / Payer (Ef fective 2023-Present) Name:Joey Valdiviay Relation to Subscriber:Self Name:Kerwinakua Kenny Payer ID:[id number] Group ID:[id number] Type:COMMERCIAL Address: [place] [address] COMMERCIAL GENERIC Member Subscriber Plan / Payer (Ef fective 2023-Present) Name:Kenny Valdivia Relation to Subscriber:Self Name:Kerwinakua Kenny Payer ID:[id number] Group ID:[id number] Type:COMMERCIAL Address: [address] [place] [id number] MEDICARE Care Teams Farm Equipment Service Technician Relationship Specialty Start Date End Date Della Jones MD PCP - General Internal Medicine 05/27/19
--- OUTSIDE RECORDS SUMMARY | 2025-07-11 08:22 | XMS_ITS | Encounter Summary ---
Author Organization [facility] Address [address] [place] [address] Care Team Providers Care Manager Architecture Name Role Phone Ajay Skinner DO Unavailable [phone] Della Jones MD Primary Care Provider [phone] Encounter Details Date Type Department Care Team (Late st Contact Info) Description 06/27/2019 [facility] Outpatient Visit [facility] [address] [place] [address] [place] [address] [place] [id number] Social History Tobacco Use Types Packs/Day Years Used Date Smoking Tobacco: Former Cigarettes 0 12/09/1980 - 12/09/2000 Smokeless Tobacco: Never Alcohol Use Standard Drinks/Week Comments Yes 2.5 (1 standard drink = 0.6 oz p ure alcohol) Sex and Gender Information Value Date Recorded Sex Assigned at Not on file Legal 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
--- OUTSIDE RECORDS SUMMARY | 2025-07-11 08:22 | XMS_ITS | Clinical Summary ---
Author Organization [facility] Address [address] [place] [address] Care Team Providers Care German Instructor Name Role Phone Ajay Skinner DO Unavailable [phone] Della Jones MD Primary Care Provider [phone] Source Comments [facility],non-owned Affiliates and Associated Physician Practices is amultiple site organization consisting of ambulatory clinics and hospital sitesin [place], [place], [place] and [place]. This disclosure is being madepursuant to the Care Everywhere program and may not contain all information available regarding this patient. Last updated 18.[facility] [place] Allergies No known active allergies Medications * Be aware that medications may not be up to date on this document. Alwaysverify current medications with the patient. atorvastatin (LIPITOR) 40 MG tablet Take 40 mg by mouth at bedtime. Active losartan (COZAAR) 100 MG tablet Take 100 mg by mouth once daily 04/26/2018 Active amLODIPine (NORVASC) 5 MG tablet Take 5 mg by mouth once daily 04/26/2018 Active fexofenadine (Mary Ellen) 180 MG tablet Take 180 mg by mouth once daily 09/29/2015 Active [place]-3 Fatty Acids (FISH OIL) 1000 MG capsule Take 1,000 mg by mouth once daily 05/14/2014 Active aspirin (ASPIRIN) 81 MG tablet Take 81 mg by mouth once daily Active atorvastatin (Lipitor) 80 MG tablet Take 80 mg by mouth once daily 07/04/2022 Active spironolactone (Aldactone) 25 MG tablet Take 12.5 mg by mouth once daily 07/04/2022 Active Active Problems Problem Noted Date Diagnosed Date Plantar fasciitis of left foot 04/24/2019 Preoperative examination 07/01/2009 Family History Medical History Relation Name Comments CAD (Coronary Artery Disease) Father Relation Name Status Comments Father Mother Social History Tobacco Use Types Packs/Day Years Used Date Smoking Tobacco: Former Cigarettes 0 12/09/1980 - 12/09/2000 Smokeless Tobacco: Never Tobacco Cessation:Counseling Given: No Alcohol Use Standard Drinks/Week Comments Yes 2.5 (1 standard drink = 0.6 oz p ure alcohol) Sex and Gender Information Value Date Recorded Sex Assigned at Not on file 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 Gender Identity Not on file Sexual Orientation Not on file Last Filed Vital Signs Vital Sign Reading Time Taken Comments Blood Pressure 114/68 07/08/2009 11:06 AM CDT Pulse 57 07/08/2009 11:06 AM CDT Temperature 36.1 C (96.9 F) 07/08/2009 11:06 AM CDT Respiratory Rate 16 07/08/2009 11:06 AM CDT Oxygen Saturation 100% 07/08/2009 10:45 AM CDT Inhaled Oxygen Concentration - - Weight 108.9 kg (240 lb) 07/07/2022 1:47 PM CDT Height 172.7 cm (5' 8) 07/07/2022 1:47 PM CDT Body Mass Index 36.49 07/07/2022 1:47 PM CDT Plan of Treatment Health Maintenance Due Date Last Done Comments COLOGUARD (AGES 45-75) - COL ON CA SCREENING 1950 COLON MONITORING 1950 COLONOSCOPY - COLON CA SCREENING 1950 CT COLONOGRAPHY - COLON CA SCREENING 1950 Colorectal Cancer Screening 1950 FIT - COLON CA SCREENING 1950 FLEX SIG - COLON CA SCREENING 1950 MEDICARE AWV 12 MONTHS 1950 HEPATITIS C SCREENING 06/27/1968 DTAP/TDAP/TD VACCINES (1 - Tdap) 1969 PNEUMOCOCCAL VACCINE 50+ (1 of 1 - PCV) 2000 ZOSTER VACCINE (1 of 2) 2000 SCREENING FOR DIABETES 06/27/2019 07/01/2009 COVID-19 VACCINE (1 - 2023-2 5 season) 2024 DEPRESSION SCREENING 11/20/2024 Respiratory Syncytial Virus (RSV) Vaccine Pt: or over 60 yrs (1 - 1-dose 75+ series) 2025 INFLUENZA VACCINE (#1) 2025 HEPATITIS B VACCINE Aged Out No longe r eligible based on patient's age to complete this topic HIB VACCINE Aged Out No longer eligi ble based on patient's age to complete this topic HPV VACCINE Aged Out No longer eligi ble based on patient's age to complete this topic MENINGOCOCCAL (Group B) VACC INE SHARED DECISION-MAKING Aged Out No longer eligibl e based on patient's age to complete this topic MENINGOCOCCAL GROUPS A/C/Y/W VACCINE Aged Out No longer eligible b ased on patient's age to complete this topic Procedures Procedure Name Priority Date/Time Associated Diagnosis Comments BASIC METABOLIC PANEL (CALCIUM TOTAL) STAT 07/01/2009 10:45 AM CDT Preoperative Examination from Last 3 Months or Most Recently Relevant to Health Maintenance Results * (ABNORMAL) BASIC METABOLIC PANEL (CALCIUM TOTAL) (07/01/2009 10:45 AM CDT) BUN 16 9.0 - 20.0 mg/dl [facility] Sodium 140 137 - 145 mmol/L [facility] Potassium 4.7 3.6 - 5.0 mmol/L [facility] Chloride 105 98.0 - 107.0 mmol/L [facility] CO2 29 22.0 - 30.0 mEq/L [facility] Anion Gap 6.0 [facility] Glucose 64(L) 75 - 110 mg/dl [facility] Creatinine 1.1 0.8 - 1.5 mg/dl [facility] Calcium 10.0 8.4 - 10.2 mg/dl [facility] eGFR by MDRD 73.1 ml/min/1.73 m2 [facility] BLOOD SPECIMEN / Unknown 07/01/2009 10:45 AM CDT 07/01/2009 11:21 AM CDT Saurabh Bonilla MD LAB - CHEMISTRY ORDERABLES F inal Result [facility] [address] [place] [address] from Last 3 Months or Most Recently Relevant to Health Maintenance Insurance COMMERCIAL GENERIC Member Subscriber Plan / Payer (Ef fective 2019-Present) Name:Kenny Fletcher Relation to Subscriber:Self Name:Kenny Fletcher Payer ID:Not on file Group ID:[id number] Type:Commercial Address: [address] [place] [id number] MEDICARE MEDICARE Care Teams German Instructor Relationship Specialty Start Date End Date Della Jones MD [address] [place] [id number] PCP - General 07/05/22 Ajay Skinner DO Orthopedic Surgery 04/24/19
--- OUTSIDE RECORDS SUMMARY | 2025-07-11 08:22 | XMS_ITS | Patient Health Record ---
Author Organization [facility] Address [address] [place], [place] [address] Care Team Providers Care Dot Net Developer Name Role Phone AVINASH FARRAR Unavailable [phone] Maxwell Infante Unavailable Unavailable Reason For Referral No Information Medications Medication SIG (Take, Route, Frequency, Duration) Notes Start Date End Date Status Niacin 100 MG Oral Tablet ORAL niacin 100 MG Oral TabletOriginal Medicationniacin 100 MG Oral Tablet *Reorder from [employer] for eRx and Interaction Alerts* 09/02/2014 Active Nabumetone 500 MG Oral Tablet ORAL nabumetone 500 MG Oral TabletOriginal Medicationnabumetone 500 MG Oral Tablet *Reorder from [employer] for eRx and Interaction Alerts* 08/29/2014 Active Losartan Potassium 100 MG Oral Tablet ORAL losartan potassium 100 MG Oral TabletOriginal Medicationlosartan potassium 100 MG Oral Tablet *Reorder from [employer] for eRx and Interaction Alerts* 09/02/2014 Active Aspirin 325 MG Oral Tablet ORAL aspirin 325 MG Oral TabletOriginal Medicationaspirin 325 MG Oral Tablet *Reorder from [employer] for eRx and Interaction Alerts* 09/02/2014 Active Metoprolol Tartrate 100 MG Oral Tablet ORAL metoprolol tartrate 100 MG Oral TabletOriginal Medicationmetoprolol tartrate 100 MG Oral Tablet *Reorder from [employer] for eRx and Interaction Alerts* 09/02/2014 Active amlodipine 10 MG Oral Tablet ORAL amlodipine 10 MG Oral TabletOriginal Medicationamlodipine 10 MG Oral Tablet *Reorder from [employer] for eRx and Interaction Alerts* 09/02/2014 Active atorvastatin 10 MG Oral Tablet ORAL atorvastatin 10 MG Oral TabletOriginal Medicationatorvastatin 10 MG Oral Tablet *Reorder from [employer] for eRx and Interaction Alerts* 09/02/2014 Active fexofenadine hydrochloride 60 MG Oral Tablet [Mary Ellen] ORAL fexofenadine hydrochloride 60 MG Oral Tablet [Mary Ellen]Original Medicationfexofenadine hydrochloride 60 MG Oral Tablet [Mary Ellen] *Reorder from [employer] for eRx and Interaction Alerts* 09/02/2014 Active Plan Of Treatment No Information Insurance Providers Payer Name Payer Address Payer Phone Subscriber Number Group Number Insured Name Patient Relationship to Insured Coverage Start Date Coverage End Date [facility] [address] [place], [place] [id number] ANTIONE FLETCHER Self - patient is the insured
[2025-07-11 08:40] LABS: Hematocrit 47.4 % (37.0-46.0); Hemoglobin 15.2 g/dL (12.4-15.3); Immature Granulocyte Percent A 0.4 % (0.0-0.0); Lymphocytes Absolute Auto 1.24 K/mm3 (1.10-4.50); Mean Corpuscular HGB Conc 32.1 g/dL (32-36); Mean Corpuscular Hemoglobin 31.0 pg (27.0-31.0); Mean Corpuscular Volume 96.5 fL (78.0-102.0); Nucleated Red Blood Cells Absolute Auto 0.00 K/mm3 (0.00-0.00); Nucleated Red Blood Cells Perc 0.0 % (0-0.0); Platelet Count Result 167 K/mm3 (150-420); Red Blood Count 4.91 M/mm3 (4.70-6.10); White Blood Count 5.7 K/mm3 (4.8-10.8)
[2025-07-11 08:42] LABS: Add Urine Microscopic? NO; Appearance Urine Clear (Clear); Glucose Urine UA Negative (Negative); Leukocyte Esterase Ur Negative LEU/UL (Negative); Nitrate Urine Negative (Negative); Specific Grav Ur 1.010 (1.010-1.020)
[2025-07-11 10:37] LABS: Alanine Aminotransferase 22 U/L (6-50); Albumin Level 4.5 g/dL (3.5-5.1); Alkaline Phosphatase 55 U/L (38-126); Anion Gap 8 mmol/L (4-12); Aspartate Amino Transferase 28 U/L (17-59); Bilirubin,Total 1.0 mg/dL (0.2-1.3); Blood Urea Nitrogen 19 mg/dL (9-20); Calcium 10.0 mg/dL (8.4-10.2); Carbon Dioxide 28 mmol/L (22-30); Chloride 106 mmol/L (98-107); Cholesterol 126 mg/dL (0-200); Estimated Glomerular Filt Rate > 60; Glucose 94 mg/dL (65-110); HDL Direct 36 mg/dL; Osmolality Calculated 296 mOsm/kg (285-295); Potassium 4.9 mmol/L (3.4-5.0); Sodium 142 mmol/L (137-145); Total Protein 6.6 g/dL (6.3-8.2); Triglycerides 106 mg/dL (<150)
[2025-07-11 11:06] LABS: Prostate Specific Antigen 0.5 ng/mL (< OR = 4.0)
== END 2025-07-11 08:18 | disposition home or self-care (01) ==
LOC: CHSLAB 08:20
PROVIDERS: PCP Internal Medicine; Visit Provider Internal Medicine
DX: E78.2 Mixed hyperlipidemia (principal); I10 Essential (primary) hypertension; Z12.5 Encounter for screening for malignant neoplasm of prostate; N39.0 Urinary tract infection, site not specified
CPT/HCPCS: 36415; 80053; 80061; 81003; 84153; 85025; G0103

== ENCOUNTER 2025-08-01 10:27 | Outpatient (CLI) | payer MEDICARE, OTHER, SELFPAY ==
--- OUTSIDE RECORDS SUMMARY | 2023-03-22 05:30 | XMS_ITS | Continuity of Care Document ---
Author Organization [facility] Address [address] [place] [address] Phone Care Team Providers Care Power Wheelchair Mechanic Name Role Phone Gopi Greenwood MD Unavailable Unavailable Allergies, Adverse Reactions, Alerts Substance Reaction Status Criticality No Known Allergies Active No Inform ation Procedures Procedure Date X-ray exam shoulder complete, minimum 2 views Asp/inject major joint or bursa w/o US g uidance Kenalog 40mg/mL [facility] 2022 Advance Directives Directive Yes / No Effective Date File Name No Information Encounters Encounter Description Practice Location Reason(s) For Visit Diagnoses Date Provider Providers Copied on Encounter Office/outpat ient visit,new, [facility], [address] [address], [place], [place], [id number], [place] tel:[phone] [facility] Left shoulder (chief complaint) Pain in left shoulderPrimary osteoarthritis, left shoulder 3 Timo Nguyễn. [address] [address], [place], [address], [place]. tel:[phone] Referring Provider: Gopi Sanford, [address] [facility], [place], [address]. tel:[phone] Family History Family Member Type Diagnosis Age At Onset Mother Problem (finding) Stroke Father Problem (finding) Stroke Mother Problem (finding) Osteoporosis Brother Problem (finding) Depression Father Problem (finding) Hypertension Mother Problem (finding) Depression Father Problem (finding) Heart Disease Mother Problem (finding) Hypertension Payers Payer name Insurance type Covered republican ID Ramiro patel(s) Medicare [place] WPS Part B AYANNA [id number] Group Administrators [facility] [id number] Social History Type Description Quantity Date Captured Comments Alcohol Use Details Unknown Caffeine Use Details Unknown Tobacco Use Status Ex-smoker Smoking Status Former smoker Non-Smoking Tobacco Use Details : No Details Available : No Details Available Sex Male Vital Signs Date / Time: Height Weight BMI Pulse Rate Blood Pressure Temperature Respiratory Rate Body Surface Area Head Circumference Head Circ. Percentile Wt./Ming. Percentile BMI percentile Pulse Ox Inhaled Ox 10:06 AM 68.00 in 108.862 kg (240.00 lbs) 36.4 9 kg/m eter (2) 2.29 meter(2) Chief Complaint And Reason For Visit From encounter dated '03/22/2023 10:30'. Left shoulder (chief complaint). Description: Kenny is a very pleasant, obese 72-year-old right-handdominant male who presents for initial evaluation of years of chronic, atraumatic, and progressive left shoulder pain. He denies focal injury or inciting event. He is not sure exactly what caused this. There was no wow moment. That said, it has been going on for a few years, and he noticed when he was fishing recently he aggravated his shoulder. It hurts him at night sometimes. He does endorse a history of an arthroscopic surgery with an open DCE over 10 years ago. He did relatively well after that. He has had no treatment or evaluation for this recently--no therapy, injections, or anti-inflammatories. Reason For Referral Reason For Referral No Information Plan Of Treatment Date Type Action Status Referral Ordered: X-ray exam shoulder complete, minimum 2 views LT ordered History Of Present Illness Encounter Date Complaint History Of Prese nt Illness Left shoulder Kenny is a very p leasant, obese 72-year-old right-hand dominant male who presents for initial evaluation of years of chronic, atraumatic, and progressive left shoulder pain. He denies focal injury or inciting event. He is not sure exactly what caused this. There was no wow moment. That said, it has been going on for a few years, and he noticed when he was fishing recently he aggravated his shoulder. It hurts him at night sometimes. He does endorse a history of an arthroscopic surgery with an open DCE over 10 years ago. He did relatively well after that. He has had no treatment or evaluation for this recently--no therapy, injections, or anti-inflammatories. Functional Status Date Functional Assessmen t No Information Instructions Date Instruction Additional Infor mation No Information Assessments Type Assessment Date assessment Pain in left shoulder 3 assessment Primary osteoarthritis, left gibran katlin ambrocio Cox is a very pleas ant, obese 72-year-old right-hand dominant male retiree who presents for initial evaluation of years of chronic, atraumatic, and progressive left shoulder pain and stiffness in the setting of a prior arthroscopic debridement and open DCE over 10 years ago at outside facility. His diagnosis is left shoulder primary glenohumeral osteoarthritisI discussed his diagnosis, treatment options, and prognosis at length. He has vhcermzh-np-fygqzh arthritis. He has had no recent treatment. I discussed that the only reliable and durable surgical options for this pathology in my opinion is a shoulder replacement. I am not sure an arthroscopic debridement would work given his level of arthrosis. That said, he has had no recent treatment. I think a steroid injection is a very reasonable next course of action. Risks and benefits were discussed. He would like to proceed.After consent, the patient was positioned in a seated position. Bony landmarks throughout the left shoulder were appropriately identified. The shoulder was sterilely prepped in usual fashion, and an injection into the glenohumeral joint from the standard posterior soft spot was made using an 22-gauge needle. A total of 4 cc of 1% lidocaine, 4 cc 0.5% Marcaine, and 80 mg of Kenalog were injected into the glenohumeral joint. The shoulder was then ranged passively, and the patient tolerated the procedure well without complication.He can follow up as needed. We can always do more injections down the road. If he is not functionally satisfied with his shoulder, I would offer him a shoulder replacement. I would favor a reverse given his age, functional status, and prior surgery. If he is doing well, he can follow up as needed Patient Care Teams Name Effective Dates (start - stop) Status Members No Information
--- NOTE | ~2025-08-01 | US_ITS ---
EXAMINATION: US scrotum doppler DATE: 08/01/2025 10:56 INDICATION: Testicular swelling and epididymitis. TECHNIQUE: Testicular sonogram utilizing grayscale and Doppler COMPARISON: None. FINDINGS: The right testis measures 4.9 x 3.9 x 2.2 cm. The left testis measures 5.7 x 3.5 x 2.3 cm. Symmetric normal grayscale appearance to both testes. There is a 2-3 mm anechoic cysts in the right testis. There is normal vascular flow to both testes. 7 mm anechoic right epididymal cyst. The right epididymis is normal with normal vascular flow. The left epididymis is normal with normal vascular flow. There is no hydrocele or right varicocele. There is a prominent left varicocele with sluggish flow seen within a serpiginous dilated veins measuring up to 4.6 mm maximal diameter. IMPRESSION: 1. Sluggish flow within a left varicocele. 2. Small cysts at the right epididymis and right testis. Otherwise unremarkable scrotal ultrasound. Reviewed, dictated and finalized at location A.
[2025-08-01 11:03] LABS: Hematocrit 48.0 % (37.0-46.0); Hemoglobin 15.5 g/dL (12.4-15.3); Mean Corpuscular HGB Conc 32.3 g/dL (32-36); Mean Corpuscular Hemoglobin 31.0 pg (27.0-31.0); Mean Corpuscular Volume 96.0 fL (78.0-102.0); Platelet Count Result 179 K/mm3 (150-420); Red Blood Count 5.00 M/mm3 (4.70-6.10); White Blood Count 5.9 K/mm3 (4.8-10.8)
[2025-08-01 11:04] LABS: Add Urine Microscopic? NO; Appearance Urine Clear (Clear); Glucose Urine UA Negative (Negative); Leukocyte Esterase Ur Negative (Negative); Nitrate Urine Negative (Negative); Specific Grav Ur <= 1.005 (1.010-1.020)
[2025-08-01 11:14] LABS: Alanine Aminotransferase 42 U/L (6-50); Albumin Level 4.9 g/dL (3.5-5.1); Alkaline Phosphatase 42 U/L (38-126); Anion Gap 13 mmol/L (4-12); Aspartate Amino Transferase 43 U/L (17-59); Bilirubin,Total 1.1 mg/dL (0.2-1.3); Blood Urea Nitrogen 18 mg/dL (9-20); Calcium 10.1 mg/dL (8.4-10.2); Carbon Dioxide 27 mmol/L (22-30); Chloride 102 mmol/L (98-107); Estimated Glomerular Filt Rate > 60; Glucose 98 mg/dL (65-110); Osmolality Calculated 295 mOsm/kg (285-295); Potassium 4.8 mmol/L (3.4-5.0); Sodium 142 mmol/L (137-145); Total Protein 7.8 g/dL (6.3-8.2)
--- OUTSIDE RECORDS SUMMARY | 2025-08-01 11:16 | XMS_ITS | Clinical Summary ---
Author Organization [facility] [address] Address [address] [place] [address] Care Team Providers Care Technical Service Specialist Name Role Phone Della Jones MD Primary [...] PAT (paroxysmal atrial tachycardia) Sick sinus syndrome ([facility]) 08/04/2016 Overview (02/25/2017): Sick sinus syndrome Chronic fatigue 05/31/2016 Overview (02/25/2017): Chronic fatigue Mixed diabetic hyperlipidemi a associated with type 2 diabetes mellitus ([facility]) 05/31/2016 Overview (02/25/2017): DM type 2 with diabetic dyslipidemia Bradycardia 05/31/2016 Overview (02/25/2017): Bradycardia Claudication 09/29/2015 Overview (02/25/2017): Claudication Coronary artery disease invo lving [place] coronary artery of [place] heart without angina pectoris 05/11/2015 Overview (02/25/2017): [...] Date Dyslipidemia 05/14/2014 07/04/2022 Overview (02/25/2017): Dyslipidemia Encounters Date Type Department Care Team Description 07/11/2025 Orders Only [facility] Health Information Management [address] [place] [address] Scanning, Provider from Last 3 Months Surgical History Surgery Date Site/Laterality Comments CORONARY ARTERY BYPASS GRAFT Medical History Medical History Date Comments Coronary artery disease Hypertension Atrial tachycardia Diabetes mellitus (HCC) Hyperlipidemia Family History Medical History Relation Name Comments Coronary artery disease Father Live [place] artery disease; Relation Name Status Comments Father Social History Tobacco Use Types Packs/Day Years Used Date Smoking Tobacco: Former Smokeless Tobacco: Never Alcohol Use Standard Drinks/Week Comments Yes 0 (1 standard drink = 0.6 oz pur e alcohol) Sex and Gender Information Value Date Recorded Sex Assigned at Not on file 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 Gender Identity Not on file Sexual Orientation [...] (#1) 2025 08/26/2019 Lipid Panel 02/28/2026 02/28/2025, 08/2 12/2023, 06/20/2023, Additional history exists Procedures Procedure Name Priority Date/Time Associated Diagnosis Comments SCAN - LABS 07/11/2025 POCT LIPID PANEL Routine 02/28/2025 2:00 PM CDT Coronary artery disease involving [place] coronary artery of [place] heart without angina pectoris Mixed diabetic hyperlipidemia associated with type 2 diabetes mellitus ([facility]/HCC) (HCC) from Last 3 Months or Most Recently Relevant to Health Maintenance Results * SCAN - LABS (07/11/2025) Provider Scanning Final Result * POCT lipid panel (02/28/2025 2:00 PM [...] fective 2023-Present) Name:Kenny Valdivia Relation to Subscriber:Self Name:Kenny Valdivia Payer ID:[id number] Group ID:[id number] Type:COMMERCIAL Address: [address] [address] [place] [address] COMMERCIAL GENERIC Member Subscriber Plan / Payer (Ef fective 2023-Present) Name:Kenny Valdivia Relation to Subscriber:Self Name:Kenny Valdivia Payer ID:[id number] Group ID:[id number] Type:COMMERCIAL Address: .[facility] [address] [place] [address] MEDICARE Care Teams Technical Service Specialist Relationship Specialty Start Date End Date Della Jones MD PCP - General Internal Medicine 05/27/19
--- OUTSIDE RECORDS SUMMARY | 2025-08-01 11:16 | XMS_ITS | Encounter Summary ---
Author Organization [facility] Address [address] [place] [address] Care Team Providers Care Pulmonology Technician Name Role Phone Della Jones MD Primary Care Provider Encounter Details Date Type Department Care Team (Late st Contact Info) Description 07/11/2025 Orders Only [facility] Information Management [address] [place] [address] Scanning, Provider Social History Tobacco Use Types Packs/Day Years Used Date Smoking Tobacco: Former Smokeless Tobacco: Never Alcohol Use Standard Drinks/Week Comments Yes 0 (1 standard drink = 0.6 oz pur e alcohol) Sex and Gender Information Value Date Recorded Sex Assigned at Not on file 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
--- OUTSIDE RECORDS SUMMARY | 2025-08-01 11:16 | XMS_ITS | Patient Health Record ---
Author Organization [facility] Address [address] [place], [place] [id number] Care Team Providers Care Battery Container Tester Name Role Phone AVINASH FARRAR Unavailable [phone] Maxwell Infante Unavailable Unavailable Reason For Referral No Information Medications Medication SIG (Take, Route, Frequency, Duration) Notes Start Date End Date Status Niacin 100 MG Oral Tablet ORAL niacin 100 MG Oral TabletOriginal Medicationniacin 100 MG Oral Tablet *Reorder from [employer] for eRx and Interaction Alerts* 09/02/2014 Active Nabumetone 500 MG Oral Tablet ORAL nabumetone 500 MG Oral TabletOriginal Medicationnabumetone 500 MG Oral Tablet *Reorder from [employer] for eRx and Interaction Alerts* 08/29/2014 Active Losartan Potassium 100 MG Oral Tablet ORAL losartan potassium 100 MG Oral TabletOriginal Medicationlosartan potassium 100 MG Oral Tablet *Reorder from [employer] for eRx and Interaction Alerts* 09/02/2014 Active Aspirin 325 MG Oral Tablet ORAL aspirin 325 MG Oral TabletOriginal Medicationaspirin 325 MG Oral Tablet *Reorder from [employer] for eRx and Interaction Alerts* 09/02/2014 Active Metoprolol Tartrate 100 MG Oral Tablet ORAL metoprolol tartrate 100 MG Oral TabletOriginal Medicationmetoprolol tartrate 100 MG Oral Tablet *Reorder from [employer] for eRx and Interaction Alerts* 09/02/2014 Active amlodipine 10 MG Oral Tablet ORAL amlodipine 10 MG Oral TabletOriginal Medicationamlodipine 10 MG Oral Tablet *Reorder from [employer] for eRx and Interaction Alerts* 09/02/2014 Active atorvastatin 10 MG Oral Tablet ORAL atorvastatin 10 MG Oral TabletOriginal Medicationatorvastatin 10 MG Oral Tablet *Reorder from [employer] for eRx and Interaction Alerts* 09/02/2014 Active fexofenadine hydrochloride 60 MG Oral Tablet [Mary Ellen] ORAL fexofenadine hydrochloride 60 MG Oral Tablet [Mary Ellen]Original Medicationfexofenadine hydrochloride 60 MG Oral Tablet [Mary Ellen] *Reorder from [employer] for eRx and Interaction Alerts* 09/02/2014 Active Plan Of Treatment No Information Insurance Providers Payer Name Payer Address Payer Phone Subscriber Number Group Number Insured Name Patient Relationship to Insured Coverage Start Date Coverage End Date [facility] [address] [place], [place] [id number] ANTIONE FLETCHER Self - patient is the insured
--- OUTSIDE RECORDS SUMMARY | 2025-08-01 11:16 | XMS_ITS | Clinical Summary ---
Author Organization [facility] Address [address] [place] [address] Care Team Providers Care Gas Appliance Repairer Name Role Phone Unavailable Primary Care Provider [...] 2) 2000 Annual Medicare Wellness Visit 2015 RSV Immunization or 60+ Years (1 - 1-dose 75+ series) 2025 COVID-19 Vaccine ( - 2023-2 5 season) 2025 Meningococcal B Vaccine Aged Out No l onger eligible based on patient's age to complete this topic Meningococcal Vaccine Aged Out No matt mehul eligible based on patient's age to complete this topic RSV Immunizations Under 20 Months Aged Out No longer eligible based on patient's age to complete this topic Insurance [id number] BENEFIT ADMIN MEDICARE
== END 2025-08-01 10:28 | disposition home or self-care (01) ==
PROVIDERS: PCP Internal Medicine; Visit Provider Nurse Practitioner Family
DX: N50.89 Other specified disorders of the male genital organs (principal); N45.1 Epididymitis; I86.1 Scrotal varices; N50.3 Cyst of epididymis; N44.2 Benign cyst of testis
CPT/HCPCS: 36415; 76870; 80053; 81003; 85027; 87086; 93976

== ENCOUNTER 2025-08-03 11:58 | Outpatient (CLI) | payer MEDICARE, OTHER, SELFPAY ==
--- OUTSIDE RECORDS SUMMARY | 2023-03-22 05:30 | XMS_ITS | Continuity of Care Document ---
Author Organization [facility] Address [address] [place] [address] Phone Care Team Providers Care Tool And Fixture Repairer Name Role Phone Gopi Greenwood MD Unavailable Unavailable Allergies, Adverse Reactions, Alerts Substance Reaction Status Criticality No Known Allergies Active No Inform ation Procedures Procedure Date X-ray exam shoulder complete, minimum 2 views Asp/inject major joint or bursa w/o US g uidance Kenalog 40mg/mL [facility] [place] Advance Directives Directive Yes / No Effective Date File Name No Information Encounters Encounter Description Practice Location Reason(s) For Visit Diagnoses Date Provider Providers Copied on Encounter Office/[place]pat [place], [facility], [address] [address], [place], [place], [id number], [place] tel:[phone] [facility] Left shoulder (chief complaint) Pain in left shoulderPrimary osteoarthritis, left shoulder 3 Timo Nguyễn. [address] [facility] [address] [facility] [address] [address], [place], [address], [place]. tel:[phone] Referring Provider: Gopi Sanford, [address] [facility], [place], [address]. tel:[phone] Family History Family Member Type Diagnosis Age At Onset Mother Problem (finding) Stroke Father Problem (finding) Stroke Mother Problem (finding) Osteoporosis Brother Problem (finding) Depression Father Problem (finding) Hypertension Mother Problem (finding) Depression Father Problem (finding) Heart Disease Mother Problem (finding) Hypertension Payers Payer name Insurance type Covered democrat ID Ramiro patel(s) Medicare [place] W[place] Part B AYANNA [id number] Group Administrators [facility] [id number] Social History Type Description Quantity Date Captured [...] options, and prognosis at length. He has bezgfjwh-tn-szljpn arthritis. He has had no recent treatment. [...]
[2025-08-03 10:50] VITALS: BMI 34.2
--- OUTSIDE RECORDS SUMMARY | 2025-08-03 12:00 | XMS_ITS | Clinical Summary ---
Author Organization [facility] Address [address] [place] [id number] Care Team Providers Care Template Reproduction Technician Name Role Phone Unavailable Primary Care Provider [...] age to complete this topic Insurance [id number] [facility] BENEFIT ADMIN MEDICARE
--- OUTSIDE RECORDS SUMMARY | 2025-08-03 12:00 | XMS_ITS | Encounter Summary ---
Author Organization [facility] Address [address] [place] [address] Care Team Providers Care Stack Matcher Name Role Phone Della Jones MD Primary Care Provider [phone] Encounter Details Date Type Department Care Team (Late st Contact Info) Description 07/11/[address] 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
--- OUTSIDE RECORDS SUMMARY | 2025-08-03 12:01 | XMS_ITS | Patient Health Record ---
Author Organization [facility] Address [address] [place], [place] [id number] Care Team Providers Care Supervisor [employer] Name Role Phone AVINASH FARRAR Unavailable [phone] Maxwell Infante Unavailable Unavailable Reason For Referral No Information Medications Medication SIG (Take, Route, Frequency, Duration) Notes Start Date End Date Status Niacin 100 MG Oral Tablet ORAL niacin 100 MG Oral TabletOriginal Medicationniacin 100 MG Oral Tablet *Reorder from [employer] for eRx and Interaction Alerts* 09/02/2014 Active Nabumetone 500 MG Oral Tablet ORAL nabumetone 500 MG Oral TabletOriginal Medicationnabumetone 500 MG Oral Tablet *Reorder from [employer] for eRx and Interaction Alerts* 08/29/2014 Active Losartan Potassium 100 MG Oral Tablet ORAL losartan potassium 100 MG Oral TabletOriginal Medicationlosartan potassium 100 MG Oral Tablet *Reorder from [employer] for eRx and Interaction Alerts* 09/02/2014 Active Aspirin 325 MG Oral Tablet ORAL aspirin 325 MG Oral TabletOriginal Medicationaspirin 325 MG Oral Tablet *Reorder from [employer] for eRx and Interaction Alerts* 09/02/2014 Active Metoprolol Tartrate 100 MG Oral Tablet ORAL metoprolol tartrate 100 MG Oral TabletOriginal Medicationmetoprolol tartrate 100 MG Oral Tablet *Reorder from [employer] for eRx and Interaction Alerts* 09/02/2014 Active amlodipine 10 MG Oral Tablet ORAL amlodipine 10 MG Oral TabletOriginal Medicationamlodipine 10 MG Oral Tablet *Reorder from [employer] for eRx and Interaction Alerts* 09/02/2014 Active atorvastatin 10 MG Oral Tablet ORAL atorvastatin 10 MG Oral TabletOriginal Medicationatorvastatin 10 MG Oral Tablet *Reorder from [employer] for eRx and Interaction Alerts* 09/02/2014 Active fexofenadine hydrochloride 60 MG Oral Tablet [Mary Ellen] ORAL fexofenadine hydrochloride 60 MG Oral Tablet [Mary Ellen]Original Medicationfexofenadine hydrochloride 60 MG Oral Tablet [Mary Ellen] *Reorder from [employer] for eRx and Interaction Alerts* 09/02/2014 Active Plan Of Treatment No Information Insurance Providers Payer Name Payer Address Payer Phone Subscriber Number Group Number Insured Name Patient Relationship to Insured Coverage Start Date Coverage End Date [facility] [address] [place], [place] [id number] ANTIONE FLETCHER Self - patient is the insured
[2025-08-03 12:15] VITALS: BP 120/72; PULSE 54; RESP 20; TEMP 36.6; O2SAT 96
[2025-08-03] MEDS: cefTRIAXone 1 GM, LIDOCAINE 1% LOCAL INJ 2.1 ML IM (12:16)
== END 2025-08-03 12:20 | disposition home or self-care (01) ==
PROVIDERS: PCP Internal Medicine; Visit Provider Nurse Practitioner Family
DX: N49.2 Inflammatory disorders of scrotum (principal)
CPT/HCPCS: 96372; J0696; J2003